=== PATIENT | male | born 1940 | race Caucasian/White ===

== ENCOUNTER → 2017-01-07 | Outpatient (CLI) | payer OTHER | LOC: FIMAGING 16:39 | PROVIDERS: ATTEND Family Medicine | DX: N28.1 Cyst of kidney, acquired (principal) ==

== ENCOUNTER → 2017-01-16 | Outpatient (CLI) | payer OTHER | LOC: FIMAGING 13:02 | PROVIDERS: ATTEND Family Medicine | DX: R91.8 Other nonspecific abnormal finding of lung field (principal); J43.2 Centrilobular emphysema; I70.0 Atherosclerosis of aorta ==

== ENCOUNTER → 2017-04-29 | Outpatient (CLI) | payer OTHER | LOC: FIMAGING 13:30 | PROVIDERS: ATTEND Internal Medicine Critical Care Medicine | DX: J44.9 Chronic obstructive pulmonary disease, unspecified (principal); R91.1 Solitary pulmonary nodule ==

== ENCOUNTER 2017-08-08 15:41 | Emergency (ER) | payer OTHER ==
[2017-08-08 15:48] VITALS: RESP 18; TEMP 98.2
[2017-08-08] MEDS ORDERED: LIDOCAINE 2% JELLY 20 ML (UROJECT) UR ONE (16:13)
--- NOTE | 2017-08-08 16:13 | EDPHY ---
H & P Stated Complaint: uti/problems urinating Time Seen by Provider: 08/08/17 16:03 HPI/ROS: CHIEF COMPLAINT: Urinary retention HISTORY OF PRESENT ILLNESS: 77-year-old male with medical history significant for BPH, chyluria, history of recurrent urinary retention because of such, presents to the ER via private vehicle with his complaining of 1 hour of urinary retention. States that starting last evening he started to notice difficulty urinating. He was diagnosed with cystitis 2 days ago, started on Bactrim double-strength by his PCP. He denies back pain. Denies abdominal or genitalia trauma. Denies fever chills. Denies back or flank pain. PRIMARY CARE PROVIDER:Reagan Martinez REVIEW OF SYSTEMS: A ten point review of systems was performed and is negative with the exception of the items mentioned in the HPI PAST MEDICAL & SURGICAL HISTORY: BPH,chyluria, history of recurrent urinary retention SOCIAL HISTORY: nonsmoker PHYSICAL EXAM (Prior to examination, patient consented to physical exam, hands were washed and my usual and customary physical exam procedures followed) 1) GENERAL: Well-developed, well-nourished, alert and oriented. Appears uncomfortable 2) HEAD: Normocephalic, atraumatic 3) HEENT: Pupils equal, round, reactive to light bilaterally. Sclera anicteric. 4) NECK: Full range of motion, no meningeal signs. 5) LUNGS: Clear auscultation bilaterally, no wheezes, no rhonchi, no retractions. 6) HEART: Regular rate and rhythm, no murmur, no heave, no gallop. 7) ABDOMEN: No guarding, no rebound, no focal tenderness, negative McBurney's, negative Haile's, negative Rovsing's, negative peritoneal sign, 8) MUSCULOSKELETAL: No peripheral edema or discoloration. 9) BACK: No CVA tenderness 10) SKIN: No rash, no petechiae. 11) : Normal male external genitalia no urethral discharge, bilateral testicles nontender DIFFERENTIAL DIAGNOSIS: in no particular include but limited to UTI, pyelonephritis, urinary retention - Personal History Current Tetanus/Diphtheria Vaccine: No - Medical/Surgical History Hx Asthma: No Hx Chronic Respiratory Disease: No Hx Diabetes: No Hx Cardiac Disease: No Hx Renal Disease: Yes Hx Cirrhosis: No Hx Alcoholism: No Hx HIV/AIDS: No Hx Splenectomy or Spleen Trauma: No Other PMH: chyluria/bph/htn - Social History Smoking Status: Never smoked Constitutional: Initial Vital Signs Temperature (C) 36.8 C 08/08/17 15:45 Heart Rate 77 08/08/17 15:45 Respiratory Rate 18 08/08/17 15:45 Blood Pressure 151/79 H 08/08/17 15:45 O2 Sat (%) 93 08/08/17 15:45 O2 Delivery Mode Room Air Allergies/Adverse Reactions: codeine [Codeine] Allergy (Verified 08/08/17 15:42) Home Medications: Medication Instructions Recorded Atenolol 08/08/17 Bactrim DS 08/08/17 Medical Decision Making ED Course/Re-evaluation: 4:15 p.m.: Bladder scan is positive, will place Fernánedz catheter. Care of patient under supervision of secondary supervising physician Dr Aquino . - Data Points Laboratory Results: 08/08/17 16:25 Urine Color Pending Urine Appearance Pending Urine pH Pending Ur Specific [place] Pending Urine Protein Pending Urine Ketones Pending Urine Blood Pending Urine Nitrate Pending Urine Bilirubin Pending Urine Urobilinogen Pending Ur Leukocyte Esterase Pending Urine RBC Pending Urine WBC Pending Ur Epithelial Cells Pending Urine Glucose Pending Medications Given: Discontinued Medications Lidocaine (Uroject Lidocaine 2% Jelly) 20 ml UR EDNOW ONE Stop: 08/08/17 16:14 Last Admin: 08/08/17 16:16 Dose: 20 ml Departure - Departure Disposition: Home, Routine, Self-Care Clinical Impression: Chyluria Condition: Good Instructions: Urinary Retention in Men (ED) Additional Instructions: If you develop a sensation that your bladder is full and you are unable to pass urine through your Fernández catheter or you notice your urine is not flowing into the bag return to the ER Referrals: Edna Arango MD [Primary Care Provider] - 1 day without fail Napoleon Meadows MD [Medical Doctor] - 1 day without fail (Dr. Napoleon Meadows is a urologist)
[2017-08-08 16:51] LABS: COLOR YELLOW; LEUKOCYTE ESTERASE,URINE NEGATIVE (NEGATIVE); NITRITE,URINE NEGATIVE (NEGATIVE)
[2017-08-08 17:11] LABS: RBC,URINE 50-182 /hpf (0-3)
[2017-08-08 17:13] VITALS: BP 119/68; PULSE 72; O2SAT 94
== END 2017-08-08 17:21 | disposition home or self-care (01) ==
PROC: 0T9B70Z Drainage of Bladder with Drainage Device, Via Natural or Artificial Opening (ICD-10-PCS; principal; 2017-08-08)
DX: R82.0 Chyluria (principal)

== ENCOUNTER 2017-08-10 16:23 | Emergency (ER) | payer OTHER ==
--- NOTE | 2017-08-10 17:37 | EDPHY ---
H & P Stated Complaint: currently has UTI, cannot urinate. s/p catheter 2 days ago. HPI/ROS: HPI CHIEF COMPLAINT: I am having trouble urinating HISTORY OF PRESENT ILLNESS: This patient very pleasant 77-year-old male, significant history of BPH and Chyluria, urinary tension, and currently being treated for urinary tract infection. Patient started developing a urinary tract infection on Saturday. He took a leftover amoxicillin and came to the emergency room on and was seen and had a Fernández placed. He removed the Fernández himself on Saturday by cutting the balloon. He now presents back to the emergency room as he cannot urinate. Very little urine output. He did urinate when he arrived to the emergency room he has a postvoid residual close to 400. Denies any fever, back pain, chest pain, shortness of breath, vomiting. He does have a follow-up appoint with Urology on Saturday. He is currently on Bactrim Past Medical History: BPH, urinary retention, recent UTI, Chyluria, Parkinson's Past Surgical History: Denies recent surgery Social History: Denies daily drugs alcohol tobacco products. Family History: Noncontributory ROS REVIEW OF SYSTEMS: A comprehensive 10 point review of systems is otherwise negative aside from elements mentioned in the history of present illness. Exam Constitutional appears nontoxic triage nursing summary reviewed, vital signs reviewed, awake/alert. Eyes normal conjunctivae and sclera, EOMI, PERRLA. HENT normal inspection, atraumatic, dry mucous membrane, no epistaxis, neck supple/ no meningismus, no raccoon eyes. Respiratory clear to auscultation bilaterally, normal breath sounds, no respiratory distress, no wheezing. Cardiovascular rate normal, regular rhythm, no murmur, no edema, distal pulses normal. Gastrointestinal soft, non-tender, no rebound, no guarding, normal bowel sounds, no distension, no pulsatile mass. Genitourinary no CVA tenderness. Musculoskeletal no midline vertebral tenderness, full range of motion, no calf swelling, no tenderness of extremities, no meningismus, good pulses, neurovascularly intact. Skin pink, warm, & dry, no rash, skin atraumatic. Neurologic awake, alert and oriented x 3, AAOx3, moves all 4 extremities equally, motor intact, sensory intact, CN II-XII intact, normal cerebellar, normal vision, normal speech. Psychiatric normal mood/affect. Heme/Lymph/Immune no lymphadenopathy. Differential Diagnosis: Includes but is not limited to in a particular order, urinary tension, urinary tract infection, cystitis, BPH, prostatitis, need for Fernández placement Medical Decision Making: Plan for this patient IV establishment with blood draw , check kidney function, IV fluid bolus 1 L, Fernández for urinary retention. Re-evaluation: 1919: This patient had a Fernández catheter placed 3 wait for irrigation irrigated out watch of white clots were removed. Urinalysis been reviewed. Additionally I did review his microbiology from his previous urinary culture. Will send a urine culture on this. He is taking Bactrim but is creatinine slightly elevated. He is receiving 1 L of normal saline here in the emergency room. His through a Fernández now has good urine output. Keflex dose given here in the emergency room. Keflex for home. I recommend he stops his Bactrim as he has elevated creatinine. He is due to follow up with Urology on Saturday. Will go home with a Fernández catheter. I have instructed him how to flush it. They are comfortable this plan. Follow up with Urology on Saturday. Keflex as prescribed. Drink lots of water. Flush Fernández. Return if worsening symptoms questions or concerns. Source: Patient - Personal History Current Tetanus/Diphtheria Vaccine: Unsure Current Tetanus Diphtheria and Acellular Pertussis (TDAP): Unsure - Medical/Surgical History Hx Asthma: No Hx Chronic Respiratory Disease: No Hx Diabetes: No Hx Cardiac Disease: No Hx Renal Disease: Yes Hx Cirrhosis: No Hx Alcoholism: No Hx HIV/AIDS: No Hx Splenectomy or Spleen Trauma: No Other PMH: chyluria/bph/htn/parkinson's, kidney surgery - Social History Smoking Status: Never smoked Constitutional: Initial Vital Signs Temperature (C) 36.6 C 08/10/17 16:40 Heart Rate 75 08/10/17 16:40 Respiratory Rate 16 08/10/17 16:40 Blood Pressure 151/76 H 08/10/17 16:40 O2 Sat (%) 94 08/10/17 16:40 O2 Delivery Mode Room Air Allergies/Adverse Reactions: codeine [Codeine] Allergy (Verified 08/10/17 16:39) Home Medications: Medication Instructions Recorded Atenolol 08/08/17 Bactrim DS 08/08/17 Meka Allergy 08/10/17 Aspirin 81mg (*) 08/10/17 Cephalexin [Keflex] 500 mg PO Q6H #28 cap 08/10/17 Rasagiline Mesylate 08/10/17 Spiriva Handihaler 08/10/17 Medical Decision Making - Data Points Laboratory Results: Laboratory Results 08/10/17 18:35 08/10/17 18:35 08/10/17 08/10/17 08/10/17 18:35 18:35 17:50 WBC 9.11 10^3/uL 10^3/uL (3.80-9.50) RBC 5.57 10^6/uL 10^6/uL (4.40-6.38) Hgb 17.4 g/dL g/dL (13.7-17.5) Hct 47.9 % % (40.0-51.0) MCV 86.0 fL fL (81.5-99.8) MCH 31.2 pg pg (27.9-34.1) MCHC 36.3 g/dL g/dL (32.4-36.7) RDW 12.4 % % (11.5-15.2) Plt Count 306 10^3/uL 10^3/uL (150-400) MPV 8.5 fL L fL (8.7-11.7) Neut % (Auto) 66.6 % % (39.3-74.2) Lymph % (Auto) 22.0 % % (15.0-45.0) [place] % (Auto) 9.9 % % (4.5-13.0) Eos % (Auto) 0.5 % L % (0.6-7.6) Baso % (Auto) 0.3 % % (0.3-1.7) Nucleat RBC Rel Count 0.0 % % (0.0-0.2) Absolute Neuts (auto) 6.07 10^3/uL 10^3/uL (1.70-6.50) Absolute Lymphs (auto) 2.00 10^3/uL 10^3/uL (1.00-3.00) Absolute Monos (auto) 0.90 10^3/uL H 10^3/uL (0.30-0.80) Absolute Eos (auto) 0.05 10^3/uL 10^3/uL (0.03-0.40) Absolute Basos (auto) 0.03 10^3/uL 10^3/uL (0.02-0.10) Absolute Nucleated RBC 0.00 10^3/uL 10^3/uL (0-0.01) Immature Gran % 0.7 % % (0.0-1.1) Immature Gran # 0.06 10^3/uL 10^3/uL (0.00-0.10) Sodium 133 mEq/L L mEq/L (134-144) Potassium 3.5 mEq/L mEq/L (3.5-5.2) Chloride 98 mEq/L mEq/L (97-110) Carbon Dioxide 25 mEq/l mEq/l (22-31) Anion Gap 10 mEq/L mEq/L (8-16) BUN 20 mg/dL mg/dL (7-23) Creatinine 1.5 mg/dL H mg/dL (0.7-1.3) Estimated GFR 46 Glucose 92 mg/dL mg/dL (70-100) Calcium 9.7 mg/dL mg/dL (8.5-10.4) Urine Color LISA Urine Appearance TURBID Urine pH 7.0 (5.0-7.5) Ur Specific [place] 1.014 (1.002-1.030) Urine Protein 2+ H (NEGATIVE) Urine Ketones NEGATIVE (NEGATIVE) Urine Blood 2+ H (NEGATIVE) Urine Nitrate NEGATIVE (NEGATIVE) Urine Bilirubin NEGATIVE (NEGATIVE) Urine Urobilinogen NEGATIVE EU EU (0.2-1.0) Ur Leukocyte Esterase NEGATIVE (NEGATIVE) Urine RBC 50-182 /hpf H /hpf (0-3) Urine WBC 3-5 /hpf H /hpf (0-3) Ur Epithelial Cells NONE SEEN /lpf /lpf (NONE-1+) Urine Glucose NEGATIVE (NEGATIVE) Medications Given: Discontinued Medications Sodium Chloride (Ns) 1,000 mls @ 0 mls/hr IV EDNOW ONE; Wide Open PRN Reason: Protocol Stop: 08/10/17 17:45 Last Admin: 08/10/17 19:16 Dose: 1,000 mls Departure - Departure Disposition: Home, Routine, Self-Care Clinical Impression: Urinary retention Condition: Good Instructions: Urinary Retention in Men (ED), Fernández Catheter Placement and Care (ED) Additional Instructions: 1. Drink lots of fluids. 2. Return emergency room if there is worsening symptoms questions or concerns. 3. Follow up with Urology on Saturday. 4. Stop your Bactrim and start Keflex. Referrals: Edna Arango MD [Primary Care Provider] - As per Instructions Hermann Foster MD [Medical Doctor] - As per Instructions Prescriptions: Cephalexin [Keflex] 500 mg PO Q6H #28 cap
[2017-08-10] MEDS ORDERED: NS 1,000 ML IV ONE (17:44)
[2017-08-10 18:12] LABS: COLOR AMBER; LEUKOCYTE ESTERASE,URINE NEGATIVE (NEGATIVE); NITRITE,URINE NEGATIVE (NEGATIVE)
[2017-08-10 18:15] LABS: RBC,URINE 50-182 /hpf (0-3)
[2017-08-10 18:48] LABS: % IMMATURE GRANULYOCYTES 0.7 % (0.0-1.1); ABSOLUTE IMMATURE GRANULOCYTES 0.06 10^3/uL (0.00-0.10); ADD DIFF? NO; ADD MORPH? NO; ADD SCAN? NO; ATYPICAL LYMPHOCYTE FLAG 0 (0-99); FRAGMENT RBC FLAG 0 (0-99); HEMATOCRIT 47.9 % (40.0-51.0); HEMOGLOBIN 17.4 g/dL (13.7-17.5); LEFT SHIFT FLG 0 (0-99); LIPEMIA HEMOLYSIS FLAG 90 (0-99); MEAN CELL HEMOGLOBIN 31.2 pg (27.9-34.1); MEAN CELL HEMOGLOBIN CONCENTR. 36.3 g/dL (32.4-36.7); MEAN PLATELET VOLUME 8.5 fL (8.7-11.7); PLATELET CLUMPS FLAG 0 (0-99); PLATELET COUNT 306 10^3/uL (150-400); RED BLOOD CELL COUNT 5.57 10^6/uL (4.40-6.38); RED CELL DISTRIBUTION WIDTH 12.4 % (11.5-15.2)
[2017-08-10 18:57] LABS: ANION GAP 10 mEq/L (8-16); CALCIUM 9.7 mg/dL (8.5-10.4); CARBON DIOXIDE 25 mEq/l (22-31); CHLORIDE 98 mEq/L (97-110); CREATININE 1.5 mg/dL (0.7-1.3); GLOMERULAR FILTRATION RATE 46; GLUCOSE 92 mg/dL (70-100); POTASSIUM 3.5 mEq/L (3.5-5.2); SODIUM 133 mEq/L (134-144)
[2017-08-10] MEDS ORDERED: CEPHALEXIN 500 MG CAP PO ONE (19:19)
[2017-08-10] MEDS ORDERED: CEPHALEXIN 500MG PREPACK#4 BTL TAKEHOME ONE (19:19)
[2017-08-10 19:34] VITALS: RESP 18
[2017-08-10 21:11] VITALS: BP 142/74; PULSE 62; TEMP 98.4; O2SAT 94
== END 2017-08-10 21:11 | disposition home or self-care (01) ==
PROC: 0T9B70Z Drainage of Bladder with Drainage Device, Via Natural or Artificial Opening (ICD-10-PCS; principal; 2017-08-10)
DX: R33.9 Retention of urine, unspecified (principal); E86.9 Volume depletion, unspecified; Z79.82 Long term (current) use of aspirin

== ENCOUNTER 2017-08-11 15:37 | Emergency (ER) | payer OTHER ==
[2017-08-11 15:47] VITALS: TEMP 97.9
--- NOTE | 2017-08-11 16:11 | EDPHY ---
H & P Stated Complaint: lópez placed yesterday/is blocked Time Seen by Provider: 08/11/17 16:11 HPI/ROS: CHIEF COMPLAINT: Urinary retention HISTORY OF PRESENT ILLNESS: The patient presents to the ED with urinary retention and López catheter blockage. The patient was seen in the emergency department yesterday and had a López catheter replaced following bladder irrigation. The patient was started on Keflex for urinary tract infection at that point time. He presents to the ED today complaining of suprapubic pressure and lower abdominal distention. The patient has been compliant with his oral medications. REVIEW OF SYSTEMS: A comprehensive 10 point review of systems is otherwise negative aside from elements mentioned in the history of present illness. Source: Patient - Personal History Current Tetanus/Diphtheria Vaccine: Yes - Medical/Surgical History Hx Asthma: No Hx Chronic Respiratory Disease: No Hx Diabetes: No Hx Cardiac Disease: No Hx Renal Disease: Yes Hx Cirrhosis: No Hx Alcoholism: No Hx HIV/AIDS: No Hx Splenectomy or Spleen Trauma: No Other PMH: chyluria/bph/htn/parkinson's, kidney surgery - Social History Smoking Status: Never smoked - Physical Exam Exam: General Appearance: Alert, no distress Eyes: Pupils equal and round no pallor or injection ENT, Mouth: Mucous membranes moist Respiratory: There are no retractions, lungs are clear to auscultation Cardiovascular: Regular rate and rhythm Gastrointestinal: Minimal suprapubic tenderness, no CVA tenderness Neurological: Grossly normal motor exam Skin: Warm and dry, no rashes Musculoskeletal: Neck is supple nontender Extremities: symmetrical, full range of motion Constitutional: Initial Vital Signs Temperature (C) 36.6 C 08/11/17 15:45 Heart Rate 74 08/11/17 15:45 Respiratory Rate 19 08/11/17 15:45 Blood Pressure 145/78 H 08/11/17 15:45 O2 Sat (%) 93 08/11/17 15:45 O2 Delivery Mode Room Air Allergies/Adverse Reactions: codeine [Codeine] Allergy (Verified 08/11/17 15:44) Home Medications: Medication Instructions Recorded Atenolol 08/08/17 Meka Allergy 08/10/17 Aspirin 81mg (*) 08/10/17 Cephalexin [Keflex] 500 mg PO Q6H #28 cap 08/10/17 Rasagiline Mesylate 08/10/17 Spiriva Handihaler 08/10/17 Medical Decision Making ED Course/Re-evaluation: Per the patient's request his López catheter was removed. The patient attempted a voiding trial in the emergency department and was able to void. A postvoid residual was checked and found to be 107 ml. The patient wants to be discharged home and will return to the ED for any urinary retention. He currently is on Keflex. The patient has no clinical evidence of pyelonephritis. The patient will follow up with his regular physician as scheduled. Departure - Departure Disposition: Home, Routine, Self-Care Clinical Impression: López catheter problem Condition: Good Instructions: Urinary Tract Infection in Men (ED) Additional Instructions: 1. Please take antibiotics as prescribed. 2. Return to the ED for any recurrent acute urinary retention, fever, vomiting, back pain or other concerns. 3. Follow up with your physicians as scheduled. Referrals: Edna Arango MD [Primary Care Provider] - As per Instructions
[2017-08-11] MEDS: CEPHALEXIN 500MG PREPACK#4 BTL TAKEHOME ONE (17:26)
[2017-08-11 17:32] VITALS: BP 138/74; PULSE 78; RESP 16; O2SAT 95
== END 2017-08-11 17:34 | disposition home or self-care (01) ==
DX: T83.098A Other mechanical complication of other urinary catheter, initial encounter (principal); I10 Essential (primary) hypertension; Z79.82 Long term (current) use of aspirin; Y82.8 Other medical devices associated with adverse incidents

== ENCOUNTER → 2017-08-28 | Outpatient (CLI) | payer OTHER | LOC: FIMAGING 14:23 | PROVIDERS: ATTEND Physician Assistant Medical ==

== ENCOUNTER → 2017-09-11 | Outpatient (CLI) | payer OTHER ==
[~2017-09-11] MED LIST: IOPAMIDOL (ISOVUE-300) 100 ML BTL ONE
== END ==
LOC: FIMAGING 14:08
PROVIDERS: ATTEND Specialist
DX: N20.0 Calculus of kidney (principal); N40.1 Benign prostatic hyperplasia with lower urinary tract symptoms; R31.0 Gross hematuria; K76.89 Other specified diseases of liver; N32.9 Bladder disorder, unspecified; N43.3 Hydrocele, unspecified
CPT/HCPCS: 74178; Q9967

== ENCOUNTER 2017-09-19 05:51 | Day surgery (SDC) | payer OTHER ==
[2017-09-19] MEDS ORDERED: LR 1,000 ML IV ONE (06:16)
[2017-09-19] MEDS ORDERED: fentaNYL 100 MCG/2 ML INJ IVP PRN (07:11)
[2017-09-19] MEDS ORDERED: ACETAMINOPHEN 500 MG TAB PO PRN (07:11)
[2017-09-19] MEDS ORDERED: ONDANSETRON 4 MG/2 ML VIAL IVP PRN (07:11)
[2017-09-19] MEDS ORDERED: ALBUTEROL 3 ML DEYVIAL IH PRN (07:11)
[2017-09-19] MEDS ORDERED: NALOXONE HCL 0.4 MG/ML INJ IVP PRN (07:11)
[2017-09-19] MEDS ORDERED: HYDROmorphONE/DILAUDID 1 MG/ML INJ IVP PRN (07:11)
--- NOTE | 2017-09-19 07:11 | PDANEPAE ---
ANE History of Present Illness Cysto, TURBT ANE Past Medical History - Cardiovascular History Hx Hypertension: Yes Hx Arrhythmias: No Hx Chest Pain: No Hx Coronary Artery / Peripheral Vascular Disease: No Hx CHF / Valvular Disease: No Hx Palpitations: No - Pulmonary History Hx COPD: Yes Hx Asthma/Reactive Airway Disease: No Hx Recent Upper Respiratory Infection: No Hx Oxygen in Use at Home: No Hx Sleep Apnea: No Sleep Apnea Screening Result - Last Documented: Positive Pulmonary History Comment: uses 2 inhalers-QNASL and Spiriva. Dx w/MAGDIEL -does not use a CPAP or other. - Neurologic History Hx Cerebrovascular Accident: No Hx Seizures: No Hx Dementia: No Neurologic History Comment: Parkinson's . 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 - Endocrine History Hx Diabetes: No - Renal History Hx Renal Disorders: Yes Renal History Comment: blood in urine. "big,bloody lumps". Urine flow has been blocked-on Flomax now. BPH. Chyluria. recent kidney infection/UTI tx w/antibx. - Liver History Hx Hepatic Disorders: No - Neurological & Psychiatric Hx Hx Neurological and Psychiatric Disorders: No - Cancer History Hx Cancer: Yes Cancer History Comment: skin - Congenital Disorder History Hx Congenital Disorders: No - GI History Hx Gastrointestinal Disorders: No - Other Health History Other Health History: none - Chronic Pain History Chronic Pain: No - Surgical History Prior Surgeries: "remove lymph system surrounding R kidney"1992. gurpreet SHELLEY Review of Systems Review of Systems: - Exercise capacity METS (RN): 4 METS ANE Patient History - Allergies Allergies/Adverse Reactions: codeine [Codeine] Allergy (Verified 09/18/17 13:56) Vomiting - Home Medications Home Medications: Meka Allergy 08/10/17 [Last Taken 09/18/17 10:00] Rasagiline Mesylate 08/10/17 [Last Taken 09/18/17 10:00] Spiriva Handihaler 08/10/17 [Last Taken 09/18/17 10:00] Atenolol-Chlorthalidone 50-25 09/18/17 [Last Taken 09/18/17 10:00] FEXOFENADINE HCL 09/18/17 [Last Taken 09/18/17 10:00] Flonase Allergy Relief 09/18/17 [Last Taken 09/18/17 10:00] Medium Chain Triglycerides 09/18/17 [Last Taken 09/18/17 10:00] Qnasl 09/18/17 [Last Taken 09/18/17 10:00] - NPO status NPO Since - Liquids (Date): 09/18/17 NPO Since - Liquids (Time): 23:00 NPO Since - Solids (Date): 09/18/17 NPO Since - Solids (Time): 22:00 - Smoking Hx Smoking Status: Former smoker ANE Labs/Vital Signs - Vital Signs Blood Pressure: 143/75 Heart Rate: 70 Respiratory Rate: 16 O2 Sat (%): 94 Height: 172.72 cm Weight: 81.647 kg ANE Physical Exam - Airway Neck exam: FROM Mallampati Score: Class 2 Mouth exam: normal dental/mouth exam - Pulmonary Pulmonary: clear to auscultation - Cardiovascular Cardiovascular: regular rate and rhythym - ASA Status ASA Status: III ANE Anesthesia Plan Anesthesia Plan: GA w LMA
[2017-09-19] MEDS ORDERED: MIDAZOLAM 2 MG/2 ML VIAL IVP ONE (07:12)
[2017-09-19] MEDS ORDERED: LIDOCAINE 2% JELLY 20 ML (UROJECT) ONE (07:14)
--- NOTE | 2017-09-19 07:19 | PDHPUP ---
History & Physical Update H&P update statement: This history and physical update is based on an assessment of the patient which was completed after admission or registration (within 24 hours), but prior to the surgery/procedure. H&P update: no change in patient's condition since H&P completed
[2017-09-19] MEDS ORDERED: fentaNYL 100 MCG/2 ML INJ ONE (07:20)
[2017-09-19] MEDS ORDERED: PROPOFOL/EMULSION 500 MG/50 ML BOTTLE IV ONE (07:20)
[2017-09-19] MEDS ORDERED: DEXAMETHASONE 4 MG/ML VIAL ONE (07:21)
[2017-09-19] MEDS ORDERED: ONDANSETRON 4 MG/2 ML VIAL ONE (07:22)
[2017-09-19] MEDS ORDERED: LIDOCAINE 2% 5 ML SDV ONE (07:22)
[2017-09-19] MEDS ORDERED: epHEDrine SULFATE 10 MG/ML SYR ONE (07:50)
--- NOTE | 2017-09-19 08:14 | POSTOPPROG ---
Post Op Note Date of Operation: 09/19/17 Surgeon: Fawn Arcos (# [id number]) Anesthesia: LMA Pre-op Diagnosis: Gross hematuria, chyluria Post-op Diagnosis: Gross hematuria, chyluria, BPH Procedure: Cystoscopy Findings: BPH, no evidence of bladder cancer Inf/Abcess present in the surg proc area at time of surgery?: No EBL: Minimal (< 5 cc) Complications: None Specimen(s): None
--- NOTE | 2017-09-19 08:16 | POSTANESTH ---
Post Anesthetic Evaluation Cardiovascular Status: Normal, Stable Respiratory Status: Normal, Stable Level of Consciousness/Mental Status: Can Participate in Eval, Mildly Sleepy, Arousable Pain Control: Adequate, Prn Tx Ordered Nausea/Vomiting Control: Adequate, Prn Tx Ordered Complications Possibly Related to Anesthesia: None Noted
[2017-09-19] MEDS ORDERED: PHENAZOPYRIDINE HCL 200 MG TAB PO ONE (08:30)
[2017-09-19] MEDS ORDERED: PHENAZOPYRIDINE HCL 200 MG TAB ONE (08:41)
[2017-09-19] MEDS ORDERED: PHENAZOPYRIDINE HCL 200 MG TAB PO SCH (08:45)
[2017-09-19 08:50] VITALS: PULSE 74; TEMP 97
[2017-09-19 09:07] VITALS: BP 116/60; O2SAT 96
[2017-09-19 09:30] VITALS: RESP 16
--- NOTE | 2017-09-19 13:22 | GOP ---
[f rep st] OPERATIVE REPORT DATE OF OPERATION: 09/19/2017 SURGEON: Fawn Arcos MD ANESTHESIA: Laryngeal mask. PREOPERATIVE DIAGNOSIS: 1. Recurrent gross hematuria. 2. Choluria. POSTOPERATIVE DIAGNOSIS: 1. Recurrent gross hematuria. 2. Choluria. 3. Benign prostatic hypertrophy. PROCEDURE PERFORMED: Diagnostic cystoscopy. FINDINGS: 1. Significant choluria. 2. Severely trabeculated bladder, likely secondary to BPH. 3. Significant BPH with prominent intravesical median lobe. SPECIMENS: None. ESTIMATED BLOOD LOSS: None. INDICATIONS: This gentleman has had issues with recent recurrent gross painless hematuria. Attempts to perform cystoscopy in the office were hindered by significant choluria. Therefore, he presents f or operative diagnostic cystoscopy at this time. Prior CT urogram was completely normal, thereby greg minating any upper urinary tract source for his recent gross hematuria. The indications for the proc edures, as well as potential risks and complications, were discussed with the patient preoperatively. He appeared to understand, his questions were answered, and he wished to proceed. Written informed surgical consent was thereafter obtained. DESCRIPTION OF PROCEDURE: The patient was brought to the operating room and administered laryngeal m ask anesthesia. He was carefully placed in the dorsal lithotomy position on the cystoscopic table. The genital area was sterilely prepped with Betadine scrub and paint, and then draped in usual steril e fashion. Cystoscopy was performed with a 25-Syriac sheath and the 30-degree and 70-degree lenses. Anterior urethra revealed no abnormalities. Posterior urethra revealed moderate circumferential BPH with a prominent median lobe that extended into the bladder and onto the trigone. The bladder had a significant amount of lymphatic-impregnated urine, which I thoroughly irrigated from the bladder. T here was 1 fairly prominent globule of probable choluria versus blood clot, which I irrigated from th e bladder as well. Thorough evaluation of bladder was then performed. The bladder was heavily trabe culated with numerous shallow diverticula. Ureteral orifices were normal in regard to shape and posi tion along the trigone. Otherwise, no areas of worrisome abnormal erythema, tumors, nor foreign bodi es were appreciated. No efflux was seen from either ureteral orifice after waiting several minutes. However, I felt very confident that his upper tracts were normal based on his normal preoperative CT urogram. Software Specialist images of his bladder diverticula and of his prostate were taken, which leigh l be given to the family as well as placed in his office chart electronically. The instruments were then removed after draining the bladder. Then 20 cc of 2% lidocaine was injected transurethrally for postoperative analgesic purposes. The patient was then awakened, transferred to his bed, then taken to the recovery room. He tolerated the procedure well overall. COMPLICATIONS: None. DISPOSITION: He was transferred to the recovery room in stable condition. He will be discharged onc e meeting standard outpatient criteria. I will likely start him on finasteride to treat his BPH and possible hematuria related to this. /[id number]/MODL
== END 2017-09-19 09:54 | disposition home or self-care (01) ==
LOC: FSGY 05:51
PROVIDERS: ATTEND Specialist
PROC: 0TJB8ZZ Inspection of Bladder, Via Natural or Artificial Opening Endoscopic (ICD-10-PCS; principal; 2017-09-19 07:15)
DX: R31.0 Gross hematuria (principal); R82.2 Biliuria; N40.1 Benign prostatic hyperplasia with lower urinary tract symptoms; I10 Essential (primary) hypertension; J44.9 Chronic obstructive pulmonary disease, unspecified; G47.33 Obstructive sleep apnea (adult) (pediatric); Z87.891 Personal history of nicotine dependence
CPT/HCPCS: J0696; J1100; J2250; J2405; J2704; J3010

== ENCOUNTER 2017-12-08 20:55 | Emergency (ER) | payer OTHER ==
[2017-12-08 21:00] VITALS: BP 140/76; PULSE 90; RESP 16; TEMP 97.3; O2SAT 97
--- NOTE | 2017-12-08 21:34 | EDPHY ---
H & P Stated Complaint: high BP Source: Patient Exam Limitations: No limitations - Medical/Surgical History Hx Asthma: No Hx Chronic Respiratory Disease: No Hx Diabetes: No Hx Cardiac Disease: No Hx Renal Disease: Yes Hx Cirrhosis: No Hx Alcoholism: No Hx HIV/AIDS: No Hx Splenectomy or Spleen Trauma: No Other PMH: chyluria/bph/htn/parkinson's, kidney surgery - Social History Smoking Status: Former smoker Time Seen by Provider: 12/08/17 21:33 HPI/ROS: HPI: This is a 77-year-old male who presents with Chief Complaint: Elevated Blood pressure Patient has decided to go see his doctor in the morning. I did not see this patient. He left without treatment. (Eve Varghese) Constitutional: Initial Vital Signs Temperature (C) 36.3 C 12/08/17 20:58 Heart Rate 90 12/08/17 20:58 Respiratory Rate 16 12/08/17 20:58 Blood Pressure 140/76 H 12/08/17 20:58 O2 Sat (%) 97 12/08/17 20:58 O2 Delivery Mode Room Air Allergies/Adverse Reactions: codeine [Codeine] Allergy (Verified 09/18/17 13:56) Vomiting Home Medications: Medication Instructions Recorded Meka Allergy 08/10/17 Rasagiline Mesylate 08/10/17 Spiriva Handihaler 08/10/17 Atenolol-Chlorthalidone 50-25 09/18/17 FEXOFENADINE HCL 09/18/17 Flonase Allergy Relief 09/18/17 Medium Chain Triglycerides 09/18/17 Qnasl 09/18/17 Finasteride [Proscar 5 MG (*)] 5 mg PO DAILY #90 tab 09/19/17 Phenazopyridine HCl [Pyridium] 200 mg PO TID 3 Days #9 tab 09/19/17 Medical Decision Making Other Provider: This patient left emergency department prior to evaluation. (Ely Esteves) Departure - Departure Disposition: Left Without Being Seen Clinical Impression: Blood pressure check Condition: Good Referrals: Edna Arango MD [Primary Care Provider] - 2-3 days, call for appt.
== END 2017-12-08 21:55 | disposition left against medical advice (07) ==
DX: Z53.21 Procedure and treatment not carried out due to patient leaving prior to being seen by health care provider (principal)

== ENCOUNTER 2018-07-02 10:18 | Day surgery (SDC) | payer OTHER ==
[2018-07-02] MEDS ORDERED: NALOXONE HCL 0.4 MG/ML INJ ONE (10:32)
[2018-07-02] MEDS ORDERED: FLUMAZENIL 0.5 MG/5 ML MDV IVP ONE (10:32)
[2018-07-02] MEDS ORDERED: fentaNYL 100 MCG/2 ML INJ ONE (10:33)
[2018-07-02] MEDS ORDERED: MIDAZOLAM 2 MG/2 ML VIAL ONE (10:33)
[2018-07-02 11:22] LABS: INR 0.94 (0.83-1.16); PROTIME(PATIENT) 12.8 SEC (12.0-15.0)
[2018-07-02] MEDS ORDERED: fentaNYL 100 MCG/2 ML INJ IVP PRN (11:22)
[2018-07-02] MEDS ORDERED: NALOXONE HCL 0.4 MG/ML INJ IVP PRN (11:22)
[2018-07-02] MEDS ORDERED: MIDAZOLAM 2 MG/2 ML VIAL IVP PRN (11:22)
[2018-07-02] MEDS ORDERED: FLUMAZENIL 0.5 MG/5 ML MDV IVP PRN (11:22)
[2018-07-02] MEDS ORDERED: NS 1,000 ML IV SCH (11:30)
--- NOTE | 2018-07-02 12:26 | PDGENHP ---
History & Physical Chief Complaint: RT LUNG MASS History of Present Illness: SIGNIFICANT SMOKING HISTORY. PERSISTANT RT LUNG PAIN NOW. CHRONIC COUGH. MASS FOUND. SMALL EFFUSION. Pertinent Past, Social, Family History: COPD, PIPE AND CIGARETTE SMOKING, STOPPED 12 YEARS AGO. Relevant Physical Exam: 2-3/10 RT SIDED PAIN, 8/10 WITH COUGHING. Cardiorespiratory Assessment: RRR, CTA
--- NOTE | 2018-07-02 12:27 | PDPROPOC ---
Sedation Plan of Care Sedation Plan of Care: vital signs stable, mental status noted, patient educated of risks, benefits, alternatives, patient can tolerate sedation ASA Classification: ASA 3 Planned drugs: fentanyl, midazolam Mallampati Score: Class 2 Mallampati Reference Image: Patient passed 3-3-2 rule?: Yes
[2018-07-02] MEDS ORDERED: ONDANSETRON 4 MG/2 ML VIAL IVP PRN (13:48)
--- NOTE | 2018-07-02 13:51 | PDRADPN ---
Radiology Procedure Note Date of Procedure: 07/02/18 Radiologist: Court Cagle Anesthesia: IV Sedation Pre-op Diagnosis: RT lung mass Post-op Diagnosis: same Indication: needs tissue biopsy Procedure: CT guided RT lung biopsy Finding(s): small ptx. No bleeding. Inf/Abcess present in the surg proc area at time of surgery?: No
[2018-07-02 17:01] VITALS: BP 123/60
== END 2018-07-02 16:53 | disposition home or self-care (01) ==
LOC: FIMAGING 10:18
PROVIDERS: ATTEND Internal Medicine Critical Care Medicine
PROC: 0BBF3ZX Excision of Right Lower Lung Lobe, Percutaneous Approach, Diagnostic (ICD-10-PCS; principal; 2018-07-02 14:07)
DX: C34.31 Malignant neoplasm of lower lobe, right bronchus or lung (principal)
CPT/HCPCS: J2250; J2310; J3010

== ENCOUNTER → 2018-07-03 | Outpatient (CLI) | payer OTHER | LOC: FIMAGING 14:09 | PROVIDERS: ATTEND Radiology Diagnostic Radiology | DX: J90 Pleural effusion, not elsewhere classified (principal); J93.9 Pneumothorax, unspecified ==

== ENCOUNTER → 2018-07-08 | Outpatient (CLI) | payer OTHER | LOC: FIMAGING 14:40 | PROVIDERS: ATTEND Internal Medicine Critical Care Medicine | DX: J93.9 Pneumothorax, unspecified (principal); J90 Pleural effusion, not elsewhere classified ==

== ENCOUNTER → 2018-07-17 | Outpatient (CLI) | payer OTHER | LOC: FIMAGING 13:27 | PROVIDERS: ATTEND Internal Medicine Hematology & Oncology | PROC: 0B9N3ZX Drainage of Right Pleura, Percutaneous Approach, Diagnostic (ICD-10-PCS; principal; 2018-07-17) | DX: C34.31 Malignant neoplasm of lower lobe, right bronchus or lung (principal); J91.0 Malignant pleural effusion ==

== ENCOUNTER → 2018-07-30 | Outpatient (CLI) | payer OTHER | LOC: FLAB 13:29 | PROVIDERS: ATTEND Internal Medicine Hematology & Oncology | DX: J90 Pleural effusion, not elsewhere classified (principal) ==